=== PATIENT | female | born 1980 | race Caucasian/White ===

== ENCOUNTER 2016-12-18 22:32 | Emergency (ER) | payer OTHER | END 2016-12-19 00:16 | disposition home or self-care (01) | LOC: FER 22:32 | DX: J01.90 Acute sinusitis, unspecified (principal); F17.210 Nicotine dependence, cigarettes, uncomplicated | CPT/HCPCS: 87804; 87899; 99283 ==

== ENCOUNTER 2021-11-05 15:58 | Emergency (ER) | payer OTHER ==
[2021-11-05 17:30] LABS: INFLUENZA A NAA NEGATIVE (NEGATIVE)
[2021-11-05 17:37] LABS: CORONAVIRUS 2019 SARS-COV-2 POSITIVE (NEGATIVE)
[2021-11-05] MEDS ORDERED: TESSALON PERLE100 MG PO (18:13)
[2021-11-05] MEDS ORDERED: NAPROXEN500 MG PO (18:13)
[2021-11-05] MEDS ORDERED: VENTOLIN HFA18 GM INH (18:13)
[2021-11-05] MEDS ORDERED: ONDANSETRON ODT4 MG PO (18:13)
== END 2021-11-05 18:42 | disposition home or self-care (01) ==
LOC: FER 15:58
PROVIDERS: Emergency Medicine
DX: U07.1 COVID-19 (principal); F17.210 Nicotine dependence, cigarettes, uncomplicated
CPT/HCPCS: 99284; U0002